=== PATIENT | male | born 1985 | race Caucasian/White ===

== ENCOUNTER 2018-11-11 05:08 | Day surgery (SDC) | payer BC ==
[2018-11-10 16:25] VITALS: BMI 25.4
--- NOTE | 2018-11-11 12:31 | HP ---
[facility]ellite [facility] - Chief Complaint Chief Complaint: left elbow fx - Past Medical History Allergies/Adverse Reactions: Allergies Allergy/AdvReac Type Severity Reaction Status Date / Time No Known Allergies Allergy Verified 11/10/18 16:24 - Current Medications Current Medications: Home Medications Medication Instructions Recorded Docusate Sodium [Colace] 100 mg PO DAILY 11/10/18 Oxycodone HCl/Acetaminophen 1 - 2 tab PO Q4H 11/10/18 [Percocet 5-325 mg Tablet] Satellite Physical Exam - Physical Examination General Appearance: Well Nourished, Well Developed, Alert & Oriented x3 ENT: Clear Lung: Normal air movement Heart: Regular rate & rhythm Extremities: Other (left elbow- splint intact, + swelling, + ttp, nvi, xrays show displaced olecranon fx) Neurological: Intact, Alert, Oriented Satellite Impression/Plan - Impression/Plan Impression: left olecranon fx Operative Procedure: left olecranon orif Date to be Performed: 11/11/18
[2018-11-11] MEDS ORDERED: ROPIVACAINE HCL 0.5% 30ML VIAL ONE (13:49)
[2018-11-11] MEDS ORDERED: MIDAZOLAM HCL 2 MG/2 ML SINGLE DOSE VIAL ONE ×2 (13:49)
[2018-11-11] MEDS ORDERED: PROPOFOL 20 ML ONE ×3 (14:02→14:15)
[2018-11-11] MEDS ORDERED: SUCCINYLCHOLINE CHLORIDE 200 MG/10 ML SYRINGE ONE (14:03)
[2018-11-11] MEDS ORDERED: ONDANSETRON 4 MG/2 ML VIAL ONE (14:15)
[2018-11-11] MEDS ORDERED: LIDOCAINE HCL/PF 2% SDV 5ML VIAL ONE (14:15)
[2018-11-11] MEDS ORDERED: ceFAZolin SODIUM 1 GM VIAL IVPB ONE (14:25)
[2018-11-11] MEDS ORDERED: EPHEDRINE SULFATE/0.9% NACL/PF 50 MG/10 ML SYRINGE NR ONE (14:48)
[2018-11-11] MEDS ORDERED: PROMETHAZINE HCL 25 MG/1 ML VIAL IVPUSH PRN (15:38)
[2018-11-11] MEDS ORDERED: ONDANSETRON 4 MG/2 ML VIAL IVPUSH PRN (15:38)
[2018-11-11] MEDS ORDERED: LACTATED RINGERS SOLUTION 1,000 ML IV SCH (15:45)
--- NOTE | 2018-11-11 15:54 | OP ---
Operative Note - Note: Operative Date: 11/11/18 Pre-Operative Diagnosis: left olecranon fracture Operation: ORIF left olecranon Post-Operative Diagnosis: Same as Pre-op Surgeon: Akira Leal Programmable Logic Controller Assembler: Dagoberto Diego Anesthesiologist/EDITORIAL CARTOONIST: Rico Flores Anesthesia: General, Local Estimated Blood Loss (mls): 0 Drains, Volume Out (mls): 0 Blood Volume Replaced (mls): 0 Fluid Volume Replaced (mls): 700 Operative Report Dictated: Yes
[2018-11-11 18:41] VITALS: BP 121/61; PULSE 76; TEMP 97.9
--- NOTE | 2018-11-11 19:35 | OP ---
DATE OF OPERATION: 11/11/2018 DATE OF DICTATION: 11/11/2018 PREOPERATIVE DIAGNOSIS: Displaced left olecranon fracture. POSTOPERATIVE DIAGNOSIS: Displaced left olecranon fracture. PROCEDURE: Open reduction, internal fixation left olecranon. SURGEON: Akira Leal M.D. HIDE SELECTOR: J Luis Nicholson ANESTHESIOLOGIST: Mary Alice Lion M.D. ANESTHESIA: Left interscalene block with LMA DRAINS: None. COMPLICATIONS: None. SPECIMENS: None. BLOOD LOSS: None. BLOOD GIVEN: None. FLUID REPLACEMENT: 700 mL. INDICATION: This patient is 33-year-old male with the preoperative diagnosis of displaced acute left olecranon fracture. After understanding the potential risks, complications, alternatives, benefits to surgery versus nonsurgical treatment, the patient elected to undergo this procedure. Patient understands that he is at risk of developing posttraumatic arthritis and other potential problems including ulnar neuropathy as a result of this injury. DESCRIPTION OF PROCEDURE; The patient was brought to the operating room, peripheral IV placed, IV sedation, given, 2 g of IV Ancef were given. A left interscalene block was performed. LMA anesthesia was induced. He was placed into the supine, floppy lateral position. Tourniquet was applied. Left upper extremity was prepped and draped in sterile fashion, elevated, exsanguinated with Esmarch bandage. Tourniquet inflated to 250 mmHg. A slightly curvilinear incision and slightly radial incision was marked out with a marking pen, and made with a number 15 scalpel blade. Subcutaneous hemostasis was achieved with Bovie cautery. Dissection was done down to the periosteum on the posterior aspect of the olecranon. We did a subperiosteal dissection with a fresh number 15 scalpel blade and periosteal elevator exposing the distal ulna to the fracture site. There was a large amount of hematoma and debris within the fracture site. This was washed out and debrided with the irrigation and the small curet. Once this was done, the fracture was seen to be 2 large fragments. I was able to put it together and smith in the fracture fragments until it looked perfectly reduced. X-rays were taken, looked very good in the articular surface was congruent, therefore I used a 2.5-mm drill bit and drilled a hole distal to the fracture site and used a bone tenaculum to bring the 2 sides together. Repeat x-rays were taken, looked excellent in every plane. The articular surface looked completely congruent. Next, using standard technique, I drilled in two 65-mm Hong partially threaded cable pins. The threaded portion of the cable pin went past the fracture site. I then removed the bone tenaculum, and the fracture was held in this position. X-rays were taken that looked anatomic, and therefore the 2 preloaded cables were brought over the top of the olecranon in a [id number] fashion and they seemed very low profile, and within the distal triceps which was good. I then drilled transversely with the 2.5-mm drill bit across the ulna distal to the fracture site and fed one of the preloaded cables through this. I then used the Hong cable pin community director in the appropriate way to tighten the 2 cable pins in opposite directions although the fracture was already anatomically reduced. There was further compression across the fracture site and overall came together very nicely. I then used the crimper to crush down the crimp in the standard way holding the lines of the cable pinned in that position. The tails of the cables were cut, x-rays were taken. Overall the construct and the fracture reduction looked quite good. The area was copiously irrigated and washed out, and closure begun. Closure was done with 0 Vicryl with triceps. I split the periosteum over the cable pins and the fascia over the ulna. The area was irrigated and washed out again , but this covered the hardware completely. Next, I used 2-0 Vicryl in the deep dermal layer and final skin reapproximation was done with shirley. The area was then washed and dried and covered with Xeroform gauze, 4x4 gauze, Webril, and a 5-inch posterior Orthoglass long arm splint was applied and wrapped with 2 Cesario bandages. The tourniquet was taken down after total tourniquet time of 52 minutes. There were no complications during the case. The patient tolerated the procedure quite well and was brought to the ambulatory recovery room in stable condition. Justice [id number] [facility]
== END 2018-11-11 18:40 | disposition home or self-care (01) ==
LOC: JASU-SURG 05:08
PROVIDERS: ATTEND Orthopaedic Surgery
PROC: 0PSL04Z Reposition Left Ulna with Internal Fixation Device, Open Approach (ICD-10-PCS; principal; 2018-11-11 14:30)
DX: S52.022A Displaced fracture of olecranon process without intraarticular extension of left ulna, initial encounter for closed fracture (principal); X58.XXXA Exposure to other specified factors, initial encounter; Y93.9 Activity, unspecified; Y92.9 Unspecified place or not applicable
CPT/HCPCS: 24685; C1713; 76000-TC-FY; 94760